=== PATIENT | male | born 1965 | race Caucasian/White ===

== ENCOUNTER 2017-07-15 14:41 | Emergency (ER) | payer OTHER ==
[~2017-07-15] VITALS: Ht 162.6 cm; Wt 74.0 kg
[2017-07-15] MEDS ORDERED: IBUPROFEN 800 MG TABLET PO ONE (15:45)
[2017-07-15 16:30] VITALS: BP 142/78
== END 2017-07-15 17:12 | disposition home or self-care (01) ==
LOC: EMS 14:42
DX: M75.31 Calcific tendinitis of right shoulder (principal); R03.0 Elevated blood-pressure reading, without diagnosis of hypertension
CPT/HCPCS: 29105; 99284

== ENCOUNTER 2019-06-15 07:38 | Emergency (ER) | payer OTHER ==
[~2019-06-15] VITALS: Ht 162.6 cm; Wt 71.8 kg
[2019-06-15] MEDS ORDERED: OMEP10 PO (07:43)
[2019-06-15] MEDS ORDERED: MOM30 PO (07:43)
[2019-06-15] MEDS ORDERED: SODIUM CHLORIDE 0.9% 1,000 ML IV ONE (08:15)
[2019-06-15] MEDS ORDERED: PROPARACAINE HCL 0.5% 15 ML OPHTHALMIC SOLUTION OS ONE (08:15)
[2019-06-15 09:10] VITALS: BP 137/76
== END 2019-06-15 09:11 | disposition home or self-care (01) ==
LOC: EMS 07:38
DX: T15.02XA Foreign body in cornea, left eye, initial encounter (principal); W22.8XXA Striking against or struck by other objects, initial encounter; Y93.89 Activity, other specified; Y92.89 Other specified places as the place of occurrence of the external cause; Y99.8 Other external cause status
CPT/HCPCS: 99283; J7030

== ENCOUNTER 2024-09-26 20:47 | Emergency (ER) | payer OTHER ==
[~2024-09-26] VITALS: Ht 162.6 cm; Wt 77.3 kg
[~2024-09-26 20:47] MED LIST: MAGN-169 PO; OMEP10CA38 PO
[2024-09-26 21:31] VITALS: TEMP 97.9
[2024-09-26 23:35] VITALS: BP 111/78; PULSE 74; RESP 18; O2SAT 99
[2024-09-26] MEDS ORDERED: LIDOCAINE 1% 10 ML VIAL SQ ONE (23:45)
[2024-09-27] MEDS: LIDOCAINE/PF 1% 5 ML VIAL SQ ONE (00:16)
[2024-09-27] MEDS ORDERED: CEPH-558 PO (00:24)
== END 2024-09-27 07:18 | disposition home or self-care (01) ==
LOC: EMS 20:48
DX: S61.215A Laceration without foreign body of left ring finger without damage to nail, initial encounter (principal); E11.9 Type 2 diabetes mellitus without complications; Z79.899 Other long term (current) drug therapy; W22.8XXA Striking against or struck by other objects, initial encounter; Y93.89 Activity, other specified; Y92.89 Other specified places as the place of occurrence of the external cause; Y99.8 Other external cause status
CPT/HCPCS: 99283; 73130; 12002; J3490

== ENCOUNTER 2025-02-16 07:21 | Emergency (ER) | payer OTHER ==
[~2025-02-16] VITALS: Ht 162.6 cm; Wt 68.6 kg
[~2025-02-16 07:21] MED LIST changes: +CEPH-558 PO
[2025-02-16 07:24] VITALS: TEMP 98.5
[2025-02-16] MEDS ORDERED: ASPI-1444 PO (07:24)
[2025-02-16] MEDS ORDERED: SEMA1PEN5 SQ (07:24)
[2025-02-16] MEDS ORDERED: ATOR40TA71 PO (07:24)
[2025-02-16 07:46] LABS: GLUCOMETER DEV NAME(LOC) ER.7; GLUCOSE,POINT OF CARE 95 MG/DL (70-110)
[2025-02-16 07:46] LABS: PLATELET COUNT (AUTO) 298 K/uL (150-450); RED BLOOD CELL COUNT(AUTO) 5.21 MIL/uL (4.50-5.90); RED CELL DISTRIBUTION WIDTH 15.2 % (11.5-14.5); WHITE BLOOD COUNT (AUTO) 5.3 K/uL (4.5-11.0)
[2025-02-16 07:53] LABS: CALCIUM, TOTAL 8.7 mg/dL (8.8-10.5); CREATININE 0.95 mg/dL (0.60-1.30); GLOMERULAR FILTR. RATE CALC > 60 mL/min (>60); GLUCOSE,RANDOM 94 mg/dL (70-110); SODIUM SERUM 139 mmol/L (136-145); UREA NITROGEN, BLOOD 19 mg/dL (7-18)
[2025-02-16 08:01] LABS: TROPONIN I-HIGH SENSITIVITY 20 ng/L (<76)
[2025-02-16 08:15] VITALS: BP 140/90; PULSE 68; RESP 18; O2SAT 99
== END 2025-02-16 08:26 | disposition home or self-care (01) ==
LOC: EMS 07:24
DX: R07.89 Other chest pain (principal); Z79.82 Long term (current) use of aspirin; Z86.39 Personal history of other endocrine, nutritional and metabolic disease; Z79.899 Other long term (current) drug therapy
CPT/HCPCS: 71045; 80048; 82962; 84484; 85025; 93005; 99285; 36415-L1; 36415-TC

== ENCOUNTER 2025-07-07 06:41 | Emergency (ER) | payer OTHER ==
[~2025-07-07] VITALS: Ht 162.6 cm; Wt 71.8 kg
[~2025-07-07 06:41] MED LIST changes: +ASPI-1444 PO; +ATOR40TA71 PO; -CEPH-558 PO; -MAGN-169 PO; -OMEP10CA38 PO; +SEMA1PEN5 SQ
[2025-07-07 06:45] VITALS: BP 158/102; PULSE 67; RESP 18; TEMP 97.7; O2SAT 99
[2025-07-07] MEDS: LIDOCAINE 1% 10 ML VIAL SQ ONE (07:06)
[2025-07-07] MEDS ORDERED: CEPH-558 PO (07:51)
== END 2025-07-07 08:05 | disposition home or self-care (01) ==
LOC: EMS 06:47
DX: S61.012A Laceration without foreign body of left thumb without damage to nail, initial encounter (principal); Z98.890 Other specified postprocedural states; Z79.82 Long term (current) use of aspirin; Z79.899 Other long term (current) drug therapy; W45.8XXA Other foreign body or object entering through skin, initial encounter; Y93.89 Activity, other specified; Y92.89 Other specified places as the place of occurrence of the external cause; Y99.8 Other external cause status
CPT/HCPCS: 99283; 12001; J3490